=== PATIENT | female | born 1995 | race Caucasian/White ===

== ENCOUNTER 2016-11-07 09:19 | Observation (INO) | payer OTHER, MEDICAID ==
[~2016-11-07] VITALS: Ht 172.7 cm; Wt 113.0 kg
[~2016-11-07 09:19] MED LIST: IBUP-1827 PO
[2016-11-07 10:33] VITALS: BP 138/81; PULSE 79; RESP 19; O2SAT 98
[2016-11-07] MEDS ORDERED: ALBU8.5H2 INHALATION (10:35)
[2016-11-07] MEDS ORDERED: MEDR150D9 IM (10:36)
[2016-11-07] MEDS ORDERED: ALBU0.63 INHALATION (10:36)
--- NOTE | 2016-11-07 10:40 | NUR ---
Arrived to [facility] Pt arrived to [facility] at approximately 1030 via cabulance. Pt states mild pain on palp on LLQ and RLQ. Brother in room with pt. VSS, HOB 30 degrees, pt oriented to room, call light and white board. Care continues.
[2016-11-07] MEDS ORDERED: Dextrose 5% Lactated Ringer's 1,000 ML IV SCH (11:57)
[2016-11-07] MEDS ORDERED: Ondansetron 2 mg/mL 2 mL Inj IVPUSH PRN (12:00)
[2016-11-07] MEDS ORDERED: metroNIDAZOLE Inj 500 MG in IV Premix 1 EACH IV SCH (12:00)
[2016-11-07] MEDS ORDERED: Acetaminophen IV 1,000 MG in IV Premix 1 EACH IV SCH (12:00)
[2016-11-07] MEDS ORDERED: MetoCLOpramide 5 mg/mL 2 mL Inj IVPUSH PRN (12:00)
--- NOTE | 2016-11-07 12:23 | PCM.HPSURG ---
Subjective Date of Service: Nov 07, 2016 Referring Provider: Admitting Physician: Patrica Coats MD Primary Care Physician: Nopcp Attending Physician: Patrica Coats MD Chief Complaint Abdominal pain History of Present Illness Lety is a 21 year old female with a 1 day history of 4 episodes of emesis, nausea and periumbilical pain that became progressively more severe. She reports that last night after dinner at 9 pm she had 3 episodes of emesis and periumbilical pain and 1 loose bowel movement. This morning at 2am she had another episode of emesis. Her pain did not improve so she presented to the [facility] ED. She was found to be afebrile, hemodynamically normal, normal LFTS and lipase , negative UA, and leukocytosis to 13.1 with 79% neutrophils and normal Hct and electrolytes. She had a CT scan demonstrating very early appendicitis with an appendix measuring 7mm and some mild periappendiceal inflammation with no fat stranding or free fluid or fecalith. Her pain improved after 1 dose of morphine and zofran and she was transferred to [facility] for further surgical evaluation. She reports that her pain is gone and she has had no further episodes of nausea or emesis. She denies fevers, chills, recent travel or sick contacts. Allergy Allergies: Coded Allergies: Sulfa (Sulfonamide Antibiotics) (Verified Allergy, Unknown, Rash, 10/24/15) hydrocodone (Verified Allergy, Unknown, 11/07/16) Medications Home medications Depo injection every 3 months. Past Surgical History Operations: Ear tubes as a child. Social History Occupation: Stay at home mom. Hx Alcohol Use: Yes (occasionally) Hx Substance Use: Yes (marijuana last used 11/06/16) Hx Tobacco Use: No PMH HEENT History History of ENT Problems?: No HEENT History: Denies:: Cataracts Dysphagia Glaucoma Sinus Problem Cardiovascular History History of Heart Problems?: Yes (during , none since.) Cardiovascular History: Positive for:: Edema (with ) Hypertension (during ) Denies:: Cardiac Surgery Chest Pain Congestive Heart Failure Heart Murmur Irregular Heartbeat Pacemaker Thrombophlebitis Respiratory History of Respiratory Problem: Yes Respiratory History: Positive for:: Asthma (has not used inhaler in over 1 year.) Dyspnea Denies:: COPD Chest Surgery Emphysema Hemoptysis Pneumonia Tuberculosis Neurological History Hx Neurologic Problems?: No Neurological History: Denies:: Alzheimer's Disease CVA Dementia Dizziness Headaches Parkinson's Disease Seizures Gastrointestinal History HX of GI Problems?: Yes Gastrointestinal History: Positive for:: Heartburn Denies:: Diverticulitis Gastroesphageal Reflux Gastrointestinal Bleeding Hepatitis Hiatal Hernia Rectal Bleeding Genitourinary History Hx of Gu Problems?: Yes Genitourinary History: Positive for: Urinary Tract Infection Denies: HX of Hemodialysis Kidney Stones Female/Male History Reproductive History Female: Denies: Currently ? Endometriosis Pelvic Inflammatory DX Problems with Breasts? (still producing milk) Musculoskeletal History Hx Musculoskeletal Problems?: No Musculoskeletal History: Denies:: Back Injury Joint Replacement Musculoskeletal Trauma Psycho Social History Hx of Psycho/Social Problems?: Yes Psycho Social History: Positive for:: Anxiety Denies:: Bipolar Disorder Hx Depression Suicide Attempt Other History Hx Any Other Health Problems?: Yes Other History: Positive for:: Hospitalization (childbirth) Denies:: Cancer Thyroid Disease Diabetes: No Social History Hx Alcohol Use: Yes (occasionally)Hx Substance Use: Yes (marijuana last used ) Smoking Status: Never Smoker Living Arrangement: with Family (She has a 1 year old son named Tracy. ) Family History Family History: Non contributory. H&P Surgical Exam Exam General: Alert, Oriented X3, Cooperative, No Acute Distress Lungs: Clear to Auscultation, Normal Air Movement Heart: Regular Rate/Rhythm, Normal S1 Abdomen: Benign, Soft, Non-tender, Non-distended, No masses Extremities: Warm Neuro: Grossly Neurologically Intact Catheters: None Lab & Micro Results: Outside Labs: Na 139, K 3.8, Cr 0.75. LFTs normal. Lipase 82. Lactate 1.4 WBC 13.1, Hct 37.7, 79% neutrophils. Hcg negative. UA negative. Diagnostics: CT Abdomen and Pelvis: 7mm appendix with periappendiceal inflammation, no fat stranding free fluid or fecalith. Assessment & Plan Assessment 21 year old female with early acute appendicitis. Pain Evaluation: Adequate Pain Control VTE Mechanical Devices: Intermittant Pneumatic CD Plan: We discussed that her case is very early and her abdominal pain is mild with only a mildly dilated appendix. She is strongly wanting to avoid surgery. We reviewed the risks benefits and pros/cons of surgical versus antibiotic treatment for acute appendicitis. We reviewed the recurrence risk of appendicitis. She would like to proceed with antibiotic treatment. She will receive another dose of ceftriaxone and flagyl in the hospital to complete a 24 hour course of antibiotics prior to discharge home this afternoon. She will continue an oral course of Augmentin for 7 day treatment course. We discussed reasons to return for evaluation including worsening abdominal pain, nausea or vomiting and fevers. We advised her that if she has return of similar symptoms she should seek medical care in the event that she develops recurrent appendicitis in the future, the risk of this is about 30% over 1 year. She is agreeable to this plan and all of her questions were answered. Resuscitation Status: CPR: Attempt Resuscitation Vamshi Cole MD Nov 07, 2016 12:23
[2016-11-07] MEDS ORDERED: cefTRIAXone Inj 2,000 MG in Dextrose 5% Minibag Plus 50 ML IV SCH (13:00)
--- NOTE | 2016-11-07 13:20 | PCM.DISURG ---
Surgical Discharge Instruction Date of Service Nov 07, 2016 Dates of Hospitalization Date of Hospital Admission Nov 07, 2016 at 10:18 Providers Admitting Physician: Patrica Coats MD Primary Care Physician: Nopcp Attending Physician: Patrica Coats MD Discharge Diagnosis Discharge Diagnosis Early acute appendicitis Post Operative diagnosis Early acute appendicitis Diet Discharge Diet: No restrictions Activity Discharge Activity-General: No restrictions Follow Up Plan Follow Up Plan Follow up with PCP as needed. Follow up with [facility] if recurrent symptoms or if severe present to nearest ED. Follow-up appointment: As needed Call your provider for: Fever, Increasing abdominal pain, Nausea, Vomiting Vamshi Cole MD Nov 07, 2016 13:20
[2016-11-07] MEDS ORDERED: OXYC5CAP4 PO (13:27)
[2016-11-07] MEDS ORDERED: POLY17PO6 PO (13:27)
[2016-11-07] MEDS ORDERED: IBUP800T28 PO (13:27)
[2016-11-07] MEDS ORDERED: ACET-171 PO (13:27)
[2016-11-07] MEDS ORDERED: AMOX-366 PO (14:23)
--- NOTE | 2016-11-07 16:39 | NUR ---
Discharge Pt discharged at approximately 1610 to home with significant other. Pt given educational material for Appendicitis, Oxycodone, Ibuprofen, Acetaminophen and Miralax, next dose to be given clearly dated and highlighted, followup appts, and plan. IV DC'd with catheter intact. Pt acknowledged and understood all information. Pt escorted to front door by WILL.
--- NOTE | 2016-11-08 08:41 | PCM.DC.SUR ---
Discharge Summary Date of Service: Date of Hospital Admission: Nov 07, 2016 at 10:18 Date of Discharge: 11/07/2016 Diagnosis at Time of Discharge Primary diagnoses: Early acute appendicitis Other chronic conditions: 1. Edema and hypertension during 2. Asthma 3. Dyspepsia 4. Anxiety 5. Occasional marijuana user Problems: Brief History and Physical: Lety is a 21 year old female with a 1 day history of 4 episodes of emesis, nausea and periumbilical pain that became progressively more severe. She reported that the night prior to admission after dinner at 9 pm she had 3 episodes of emesis and periumbilical pain and 1 loose bowel movement. The morning of admission at 2am she had another episode of emesis. Her pain did not improve so she presented to the [facility] ED. She was found to be afebrile, hemodynamically normal, normal LFTS and lipase, negative UA, and leukocytosis to 13.1 with 79% neutrophils and normal Hct and electrolytes. She had a CT scan demonstrating very early appendicitis with an appendix measuring 7mm and some mild periappendiceal inflammation with no fat stranding or free fluid or fecalith. Her pain improved after 1 dose of morphine and zofran and she was transferred to [facility] for further surgical evaluation. She reported that her pain was gone and she had no further episodes of nausea or emesis. She denieed fevers , chills, recent travel or sick contacts. Consultants: None Hospital Course: The patient was admitted for IV antibiotics and observation. She was discharged later on the day of admission after receiving a total of 24 hours of IV antibiotics. Pathology: None Disposition: The patient was discharged home on her admission day. Follow-up Plan: She will follow-up with her PCP in one week if symptoms do not improve. Acetaminophen (Acetaminophen) 500 Mg Tablet 500 MG PO Q6H PRN PRN For Pain Albuterol HFA (Proair HFA) 8.5 Gm Hfa.aer.ad 2 PUFFS INHALATION Q4H PRN PRN For Shortness of Breath (Reported) Albuterol Neb Soln (Albuterol Neb Soln) 0.63 Mg/3 Ml Vial.neb 0.63 MG INHALATION Q4H PRN PRN For Shortness of Breath (Reported) Amoxicillin/Clav K 875-125 mg (Augmentin 875-125 mg) 1 Each Tablet 1 TABLET PO BID Ibuprofen (Ibuprofen) 800 Mg Tablet 800 MG PO TID PRN PRN For Pain Medroxyprogesterone Acetate (Depo-Provera) 150 Mg/1 Ml Syringe 150 MG IM [id number] (Reported) Polyethylene Glycol 3350 (Miralax) 17 Gm Powd.pack 17 GM PO DAILY oxyCODONE (oxyCODONE) 5 Mg Capsule 5 MG PO Q4H PRN PRN For Pain Dallas Hodges PA-C Nov 08, 2016 08:41
== END 2016-11-07 16:15 | disposition home or self-care (01) ==
LOC: INTOOBSV 10:18 → OSC 10:18
PROVIDERS: ADMIT Surgery; ATTEND Surgery
DX: K35.80 Unspecified acute appendicitis (principal); J45.909 Unspecified asthma, uncomplicated; F41.9 Anxiety disorder, unspecified; F12.90 Cannabis use, unspecified, uncomplicated
CPT/HCPCS: 96365; 96367; G0378; G0379; J0696; J3490